=== PATIENT | female | born 1990 | race Caucasian/White ===

== ENCOUNTER → 2018-03-04 09:00 | Outpatient (CLI) | payer OTHER, SELFPAY | PROVIDERS: Family Provider Family Medicine; PCP Family Medicine; Visit Provider Family Medicine | DX: T63.301A Toxic effect of unspecified spider venom, accidental (unintentional), initial encounter (principal) | CPT/HCPCS: 87070; 87205 ==

== ENCOUNTER → 2019-01-14 10:35 | Outpatient (CLI) | payer OTHER, SELFPAY ==
[2019-01-14 11:24] LABS: Follicle Stimulating Hormone 4.4 mIU/mL; Luteinizing Hormone 13.4 mIU/mL
[2019-01-14 11:30] LABS: Progesterone Level 0.46 ng/mL (See Comment)
[2019-01-14 11:44] LABS: PTHIN 32.1 pg/mL (18.4-80.1)
[2019-01-22 09:07] LABS: Testosterone, % Free 2.85 % (0.50-2.80); Testosterone, Free 0.63 ng/dL (0.10-0.85); Testosterone, Total 22 ng/dL (8-48)
[2019-01-22 15:48] LABS: Estrogen, Total, Serum 195 pg/mL (.)
== END ==
PROVIDERS: Family Provider Family Medicine; PCP Family Medicine; Referring Provider Obstetrics & Gynecology; Visit Provider Obstetrics & Gynecology
DX: E83.52 Hypercalcemia (principal); F41.9 Anxiety disorder, unspecified
CPT/HCPCS: 82330; 82627; 82672; 83001; 83002; 83970; 84144; 84402; 84403; 82626

== ENCOUNTER → 2019-03-21 16:22 | Outpatient (CLI) | payer OTHER, SELFPAY | PROVIDERS: Visit Provider Obstetrics & Gynecology | DX: Z12.4 Encounter for screening for malignant neoplasm of cervix (principal) | CPT/HCPCS: 88175; G0145 ==

== ENCOUNTER → 2019-04-17 | Outpatient (CLI) | payer OTHER, SELFPAY ==
[2019-04-17 17:25] LABS: Absolute Lymphocyte Count 2.37 X10^3/uL (0.83-4.51); Absolute Neutrophil Count 2.4 X10^3/uL (2.0-7.7); Basophil# 0.09 X10^3/uL; Basophil% 1.5 % (0-1); Eosinophil# 0.59 X10^3/uL; Eosinophils% 9.6 % (0-5); Hematocrit 38.4 % (37-47); Hemoglobin 12.5 g/dL (12.0-15.0); Lymphocyte # 2.37 X10^3/ul (4.0); Lymphocyte % 38.7 % (19-41); Mean Corp Hgb Conc 32.6 g/dL (32-36); Mean Corpuscular Hgb 31.6 pg (27.0-32.0); Mean Platelet Vol. 12.4 fl (6.2-12.0); Monocyte# 0.63 X10^3/uL; Monocyte% 10.3 % (0-10); NRBC Flagged by Analyzer 0 % (0-5); Neutrophil # 2.43 X10^3/uL (2.7-7.7); Neutrophil % 39.6 % (47-70); Platelet Count 219 K/mm3 (150-450); RBC Distribution Width CV 12.3 % (11.6-14.6); RBC Distribution Width SD 43.8 fl (35.1-43.9); Red Blood Count 3.96 M/mm3 (4.2-5.4); White Blood Count 6.1 K/mm3 (4.4-11.0)
[2019-04-17 17:44] LABS: Erythrocyte Sedimentation Rate 1 mm/hr (0-20)
[2019-04-17 17:51] LABS: AST(SGOT) 11 U/L (15-37); Alanine Aminotransfer ALT/SGPT 23 U/L (13-56); Albumin, Serum 4.2 g/dL (3.2-5.0); Alkaline Phosphatase 46 U/L (45-117); BUN 9 mg/dL (7-18); Bilirubin, Direct 0.07 mg/dL (0.00-0.30); EST Glomerular Filtration Rate 106 mL/min (>60); Est Glom Filt Rate - Afr Amer 129 mL/min (>60); Globulin 3.9 g/dL (2.2-4.2); Protein, Total 8.1 g/dL (6.4-8.2); Rheumatoid Factor < 10.0 IU/mL (<15); Uric Acid 4.1 mg/dL (2.6-6.0)
[2019-04-17 17:55] LABS: Vitamin D,25 Hydroxy 21.8 ng/mL (29.95-100.01)
[2019-04-21 10:09] LABS: Thyroid Peroxidase AB 15 IU/mL (0-34)
== END | disposition home or self-care (01) ==
LOC: MTLAB 16:25
PROVIDERS: Family Provider Family Medicine; PCP Family Medicine; Referring Provider Specialist; Visit Provider Specialist
DX: L50.1 Idiopathic urticaria (principal); E55.9 Vitamin D deficiency, unspecified; E07.9 Disorder of thyroid, unspecified
CPT/HCPCS: 36415; 80076; 82306; 82565; 83520; 84520; 84550; 85025; 85652; 86038; 86376; 86431

== ENCOUNTER → 2020-02-26 14:54 | Outpatient (CLI) | payer BC, SELFPAY ==
[2020-02-26 17:47] LABS: Absolute Lymphocyte Count 2.04 X10^3/uL (0.83-4.51); Basophil# 0.06 X10^3/uL; Eosinophil# 0.32 X10^3/uL; Eosinophils% 5.4 % (0-5); Hemoglobin 12.4 g/dL (12.0-15.0); Lymphocyte # 2.04 X10^3/ul (4.0); Lymphocyte % 34.2 % (19-41); Mean Corp Hgb Conc 31.8 g/dL (32-36); Mean Corpuscular Hgb 32.3 pg (27.0-32.0); Mean Corpuscular Volume 101.6 fL (81-99); Mean Platelet Vol. 12.8 fl (6.2-12.0); Monocyte# 0.56 X10^3/uL; Monocyte% 9.4 % (0-10); NRBC Flagged by Analyzer 0 % (0-5); Neutrophil # 2.98 X10^3/uL (2.7-7.7); Neutrophil % 49.8 % (47-70); Platelet Count 229 K/mm3 (150-450); RBC Distribution Width CV 12.2 % (11.6-14.6); Red Blood Count 3.84 M/mm3 (4.2-5.4)
[2020-02-26 18:02] LABS: Vitamin B12 790 pg/mL (211-911)
[2020-02-26 18:07] LABS: ALB/GLOB Ratio 1.1 RATIO (0.9-2.4); AST(SGOT) 10 U/L (15-37); Alanine Aminotransfer ALT/SGPT 19 U/L (13-56); Albumin, Serum 4.4 g/dL (3.2-5.0); Alkaline Phosphatase 42 U/L (45-117); Anion Gap 8 (5-15); BUN 13 mg/dL (7-18); BUN/Creat Ratio 19.3 RATIO (10-20); CRP < 2.90 mg/L (0.0-3.0); Calcium,Total 8.3 mg/dL (8.5-10.1); Chloride 106 mmol/L (98-107); Creatinine, Serum 0.67 mg/dL (0.55-1.02); EST Glomerular Filtration Rate 110 mL/min (>60); Est Glom Filt Rate - Afr Amer 133 mL/min (>60); Ferritin 16 ng/mL (8-252); Globulin 3.9 g/dL (2.2-4.2); Glucose 82 mg/dL (74-106); Iron 117 ug/dL (50-170); Potassium 3.5 mmol/L (3.5-5.1); Protein, Total 8.3 g/dL (6.4-8.2); Sodium Level 141 mmol/L (136-145); T4 Free Direct 1.37 ng/dL (0.76-1.46); Thyroid Stim Hormone (TSH) 1.07 uIU/mL (0.358-3.74)
[2020-02-26 18:50] LABS: Erythrocyte Sedimentation Rate 2 mm/hr (0-20)
[2020-02-28 13:10] LABS: Thyroid Peroxidase AB 10 IU/mL (0-34)
== END ==
PROVIDERS: PCP Family Medicine; Referring Provider Family Medicine; Visit Provider Family Medicine
DX: D64.9 Anemia, unspecified (principal); R53.83 Other fatigue; E55.9 Vitamin D deficiency, unspecified; R76.8 Other specified abnormal immunological findings in serum
CPT/HCPCS: 36415; 80053; 82306; 82607; 82728; 83540; 84439; 84443; 85025; 85652; 86140; 86376

== ENCOUNTER → 2020-07-21 11:52 | Outpatient (CLI) | payer BC, SELFPAY ==
--- NOTE | 2020-07-21 11:55 | RAD_ITS ---
STUDY: X-RAY - RIGHT FOOT CLINICAL: Female, 29 years old. Pain on top of foot near 3rd mt. x 2 months TECHNIQUE: 3 view(s) of the foot. COMPARISON: None. FINDINGS: Normal talus, calcaneus, and tarsal bones. Normal visualized subtalar, talonavicular, calcaneocuboid, tarsal and tarsometatarsal articulations. Normal metatarsi. Normal metatarsophalangeal joint of the great toe. Normal tibial and fibular sesamoid bones. Normal interphalangeal joint of the great toe. Normal phalanges of the great toe. Normal second through fifth metatarsophalangeal joints. Normal interphalangeal joints and phalanges of the lesser toes. The soft tissue structures are unremarkable. RAD/Foot min 3 Views IMPRESSION: Normal x-ray examination of the foot. Electronically Signed: Domingo Donato MD at 8:51 EST Tel , Service support ,
== END ==
PROVIDERS: PCP Family Medicine; Referring Provider Family Medicine; Visit Provider Family Medicine
DX: M79.673 Pain in unspecified foot (principal)
CPT/HCPCS: 73630

== ENCOUNTER → 2020-12-22 07:49 | Outpatient (CLI) | payer BC, SELFPAY ==
[2020-12-25 04:09] LABS: QNTFERON TB Mitogen Value > 10.00 IU/mL (.); QNTFERON TB Nil Value 0 IU/mL (.); QNTFERON TB1+ Ag Value 0 IU/mL (.); QNTFERON TB2+ Ag Value 0 IU/mL (.)
[2020-12-25 07:26] LABS: QNTIFERON TB Positive Criteria Negative (Negative)
== END ==
PROVIDERS: PCP Family Medicine; Referring Provider Family Medicine; Visit Provider Family Medicine
DX: Z11.1 Encounter for screening for respiratory tuberculosis (principal)
CPT/HCPCS: 36415; 86480

== ENCOUNTER 2021-10-31 11:56 | Outpatient (CLI) | payer BC, SELFPAY ==
[2021-10-31 15:40] LABS: Progesterone Level 9.62 ng/mL (See Comment); Vitamin D,25 Hydroxy 35.1 ng/mL
== END 2021-10-31 23:59 | disposition home or self-care (01) ==
LOC: MTLAB 11:58
PROVIDERS: PCP Family Medicine; Referring Provider Obstetrics & Gynecology; Visit Provider Obstetrics & Gynecology
DX: E28.2 Polycystic ovarian syndrome (principal); E28.8 Other ovarian dysfunction
CPT/HCPCS: 36415; 82306; 82672; 84144

== ENCOUNTER → 2022-11-30 | Outpatient (CLI) | payer OTHER, SELFPAY | END | disposition home or self-care (01) | LOC: MTLAB 09:08 | PROVIDERS: PCP Family Medicine; Referring Provider Family Medicine; Visit Provider Family Medicine | DX: N94.6 Dysmenorrhea, unspecified (principal); E28.2 Polycystic ovarian syndrome; E03.9 Hypothyroidism, unspecified; E59 Dietary selenium deficiency; D64.9 Anemia, unspecified ==

== ENCOUNTER 2024-05-02 10:05 | Emergency (ER) | payer OTHER, SELFPAY ==
[2024-05-02 10:07] VITALS: BP 117/63; PULSE 81; RESP 16; TEMP 36.4; O2SAT 100; BMI 21.6
--- NOTE | 2024-05-02 10:33 | EKG12_ITS ---
Test Reason : COUGH Blood Pressure : / mmHG Vent. Rate : 067 BPM Atrial Rate : 067 BPM P-R Int : 106 ms QRS Dur : 066 ms QT Int : 386 ms P-R-T Axes : 053 038 018 degrees QTc Int : 407 ms Sinus rhythm with short AR Otherwise normal ECG Confirmed by APOORVA MELENDEZ, ALEXIS ([id number]), movie editor KEVYN BURGESS ([id number]) on 05/05/2024 6:51:26 AM Referred By: Confirmed By:ALEXIS GUERIN MD
--- NOTE | 2024-05-02 10:34 | EX.ED.DYSGE1 ---
HPI History of Present Illness Chief Complaint: Allergic Reaction Narrative Narrative: 53-year-old female past medical history of previous allergic reactions to minocycline, Augmentin, and amoxicillin presents with possible allergic reaction versus side effects of medication. She relates history that she used a Q-tip in her right ear about a month ago, and was put on drops for otitis externa. It never fully healed. She states she also has eustachian tube dysfunction. She saw her family doctor's office and she states that she was put on Omnicef which she started last evening. After she took it, she went to bed but woke up in the middle of the night with palpitations and a fast pounding heart rate. She gets that on occasion when she is hypoglycemic. She had also taken a Zyrtec last evening. She was able to go back to sleep. She states this morning she took her second dose of the cefdinir, this was at around 930, an hour ago. She had her boss drive her here because she thought maybe she was having allergic reaction again because her throat felt funny. And almost felt thick, but she denies any difficulty swallowing, no difficulty breathing, no noted rash. PFSH PFSH Allergy/AdvReac Type Severity Reaction Status Date / Time amoxicillin Allergy Mild Rash Verified 05/02/24 10:07 clavulanic acid (From Allergy Mild Rash Verified 05/02/24 10:07 Augmentin) minocycline AdvReac Mild Other Verified 05/02/24 10:07 Social History Smoking Status: Never smoker ROS ROS ED ROS Narrative Constitutional: No fever, no chills. HEENT: No sore throat. However, comments that throat feels thick, and funny. No neck pain. No loss of vision. No rhinorrhea. Cardiovascular: No chest pain. Positive palpitations, fast pounding heart rate. Respiratory: No difficulty breathing. No cough. EXAM Physical Exam Narrative Exam Narrative: Afebrile. Vital signs noted. HEENT examination shows no evidence of drooling or trismus. Airway patent. No angioedema. Neck soft and supple. Cardiovascular examination reveals a regular rate and rhythm. Lungs are clear to auscultation bilaterally without wheezing, no stridor noted on exam. Moving a good amount of air. Skin examination shows no evidence of rash. Const Vital Signs: 05/02/24 10:07 05/02/24 11:10 Temperature 97.5 F L Temperature Source Temporal Pulse Rate 81 70 Respiratory Rate 16 18 Blood Pressure 117/63 118/64 Blood Pressure Mean 81 82 Pulse Ox 100 100 Oxygen Delivery Method Room Air MDM MDM MDM Narrative Medical decision making narrative: Differential diagnosis includes allergic reaction versus medication side effect. I do feel that her throat thickness may be secondary to other reasons and including URI or seasonal allergies. Her pulse ox is 100% on room air without evidence of hypoxia. She was placed on a milling machinist. I do not feel she requires epinephrine, I do not feel she is having an anaphylactic reaction. She has normal blood pressure as well. She will be given 25 mg of Benadryl orally here and observed in the emergency department. EKG was also obtained because of her palpitations that were reported which could also be medication side effect. Upon repeat examination after Benadryl, she feels improved. I feel she be discharged safely home with follow-up. I do feel is probably more of a medication side effect, or she was taking Zyrtec from her eustachian tube dysfunction so she was told to take Benadryl instead that seems to be working better for her. I do not feel she requires epinephrine as an outpatient either. EKG was obtained and interpreted by myself independently as normal sinus rhythm with a rate in the 60s, but no acute ST changes. No STEMI. She will follow-up with her primary care provider. They can change her antibiotics as necessary. She states that she had received it from the urgent care. Return instructions to the emergency department were reviewed. Disposition is discharged home in stable condition. History & Record Review Discussion w/independent historian: Patient Discharge Plan Triage Chief Complaint: Allergic Reaction ED Provider: Chi Nagel Dx/Rx/DC Orders Clinical Impression: Palpitations, Medication side effects Instructions: ED General Allergic Reactions, ED Drug Reaction, Other, ED Palpitations Primary Care Provider: Kwame Pierce Referrals: Kwame Pierce MD [Primary Care Provider] - 3-5 Days if not improving Activity Restrictions/Additional Instructions: Return with difficulty breathing, increased sensation of throat closing, new or worsening symptoms. Print Language: Ethiopian Disposition Disposition: Home, Self Care
[2024-05-02] MEDS: DiphenhydrAMINE 25 MG Capsule PO (10:40)
--- NOTE | 2024-05-02 10:46 | NURSING ---
NO OLD EKGS
[2024-05-02 11:10] VITALS: BP 118/64; PULSE 70; RESP 18; O2SAT 100
[2024-05-02 11:57] VITALS: BP 124/78; PULSE 64; RESP 18; TEMP 36.4; O2SAT 99
== END 2024-05-02 11:58 | disposition home or self-care (01) ==
PROVIDERS: Emergency Provider Emergency Medicine; PCP Family Medicine; Visit Provider Emergency Medicine
DX: R00.2 Palpitations (principal); T36.1X5A Adverse effect of cephalosporins and other beta-lactam antibiotics, initial encounter
CPT/HCPCS: 93005; 99283

== ENCOUNTER → 2025-05-08 | Outpatient (CLI) | payer OTHER, SELFPAY | END | disposition home or self-care (01) | LOC: LABSPEC 10:56 | PROVIDERS: PCP Family Medicine; Referring Provider Advanced Practice Midwife; Visit Provider Advanced Practice Midwife | DX: N89.8 Other specified noninflammatory disorders of vagina (principal) | CPT/HCPCS: 87070; 87205 ==

== ENCOUNTER → 2025-06-03 | Outpatient (CLI) | payer OTHER, SELFPAY | END | disposition home or self-care (01) | LOC: LABSPEC 12:12 | PROVIDERS: PCP Family Medicine; Visit Provider Nurse Practitioner Women's Health | DX: N89.8 Other specified noninflammatory disorders of vagina (principal) | CPT/HCPCS: 87070; 87205 ==

== ENCOUNTER → 2025-07-21 | Outpatient (CLI) | payer OTHER, SELFPAY ==
[2025-07-25 00:07] LABS: Calprotectin, Stool <5 ug/g (0-120)
[2025-07-27 17:08] LABS: H. PYLORI STOOL AG Negative (Negative); Pancreatic Elastase, Fecal > 800 (>200)
== END | disposition home or self-care (01) ==
LOC: LABSPEC 09:28
PROVIDERS: PCP Family Medicine; Referring Provider Student in an Organized Health Care Education/Training Program; Visit Provider Student in an Organized Health Care Education/Training Program
DX: R10.11 Right upper quadrant pain (principal); R19.5 Other fecal abnormalities
CPT/HCPCS: 82653; 83993; 87338